=== PATIENT | female | born 1940 | race Caucasian/White ===

== ENCOUNTER 2018-06-20 08:23 | Observation (INO) ==
--- NOTE | 2018-06-20 08:51 | ED ---
HPI General Chief complaint: Respiratory Symptoms Stated complaint: sob x 2 weeks Time Seen by Provider: 06/20/18 08:47 Source: patient Mode of arrival: ambulatory Limitations: no limitations History of Present Illness HPI narrative: 77-year-old female patient with previous history of uterine cancer, colon cancer and breast cancer status post chemo and radiation, postherpetic neuralgia history, presents to the ER today because she states that over the last few weeks she has been having increasing dyspnea on exertion , general weakness, and decided to come in today to be evaluated. She denies any vomiting, diarrhea, black stools, fevers, coughing, chest pains, or other symptoms. Modifying Factors: None Associated Signs & Symptoms:General weakness, dyspnea on exertion for several weeks Risk Factors: None Related Data Home Medications Medication Instructions Recorded Confirmed duloxetine [Cymbalta] 60 mg PO DAILY 06/20/18 06/20/18 gabapentin 300 mg PO BID 06/20/18 06/20/18 Allergies Allergy/AdvReac Type Severity Reaction Status Date / Time Sulfa (Sulfonamide Allergy Intermediate Blister Verified 06/20/18 08:35 Antibiotics) Review of Systems ROS: all other systems reviewed are negative PMFSH History History Provided By: Patient Medical History Medical History Hx of breast cancer (Acute) Hx of cancer of uterus (Acute) Hx of colon cancer, stage I (Acute) Hx of hysterectomy (Acute) Surgical History Surgical History Hx of lumpectomy (Acute) Social History Social History Substance History: No History of Abuse Second Hand Smoke Exposure: No Smoking Status: Former smoker Tobacco Type: Cigarettes How Often Do You Have a Drink Containing Alcohol: Never Recent Travel in [place] within the Last 8 Weeks: No Recent Out of Country Travel within the Last 8 Weeks: No Exam Narrative Exam Narrative: GENERAL: Well-developed elderly female patient currently in moderate distress. Awake and oriented x3. SKIN: Focused skin assessment warm/dry. HEAD: Atraumatic. Normocephalic. EYES: Pupils equal and round. No scleral icterus. No injection or drainage. ENT: No nasal bleeding or discharge. Mucous membranes pink and moist. NECK: Trachea midline. No JVD. CARDIOVASCULAR: Regular rate and rhythm. No murmur appreciated. RESPIRATORY: No accessory muscle use. Clear to auscultation. Breath sounds equal bilaterally. GASTROINTESTINAL: Abdomen soft, non-tender, nondistended. Hepatic and splenic margins not palpable. MUSCULOSKELETAL: No obvious deformities. No clubbing. No cyanosis. No edema. NEUROLOGICAL: Awake and alert. No obvious cranial nerve deficits. Motor grossly within normal limits. Normal speech. PSYCHIATRIC: Appropriate mood and affect; insight and judgment normal. Course Initial Documented Vital Signs Temperature 97.8 F 06/20/18 08:33 Pulse Rate 88 06/20/18 08:33 Respiratory Rate 16 06/20/18 08:33 Blood Pressure 147/65 H 06/20/18 08:33 Pulse Oximetry 97 06/20/18 08:33 Last Documented Vital Signs Temperature 97.8 F 06/20/18 08:33 Pulse Rate 74 06/20/18 10:07 Respiratory Rate 20 06/20/18 10:07 Blood Pressure 114/53 L 06/20/18 09:57 Pulse Oximetry 96 06/20/18 09:57 Medical Decision Making MDM Narrative Medical decision making narrative: Lab work shows elevated BUN and creatinine. Chest x-ray and CAT scan of the chest did not show any signs of acute pulmonary processes. EKG did not show significant tachycardia or significant dysrhythmias. Her blood pressure is on the low side. She was tried on a dose of nebulizer and Solu-Medrol but that did not improve her symptoms much. At this point, my plan would be to admit her for further evaluation. Patient states that she is having trouble just getting from bed to the bathroom which is across the hallway.Case is discussed with Dr. Liz for admission. Medical Screen Exam Complete: Yes Emergency Medical Condition: Yes Differential Diagnosis Differential Diagnosis: Dehydration versus electrolyte abnormalities versus CHF versus pneumonia Lab Data Result diagrams: 06/20/18 08:50 06/20/18 08:50 Lab Results 06/20/18 06/20/18 06/20/18 Range/Units 08:50 08:50 08:50 CBC w Diff Auto diff final WBC 4.2 (4.0-11.0) th/mm3 RBC 4.40 (4.00-5.30) mil/mm3 Hgb 13.8 (11.6-15.3) gm/dL Hct 42.0 (35.0-46.0) % MCV 95.5 (80.0-100.0) fL MCH 31.4 (27.0-34.0) pg MCHC 32.9 (32.0-36.0) % RDW 13.2 (11.6-17.2) % Plt Count 142 L (150-450) th/mm3 MPV 8.7 (7.0-11.0) fL Neut % (Auto) 63.1 (16.0-70.0) % Lymph % (Auto) 25.3 (9.0-44.0) % [place] % (Auto) 6.8 (0.0-8.0) % Eos % (Auto) 3.1 (0.0-4.0) % Baso % (Auto) 1.7 (0.0-2.0) % Neut # (Auto) 2.6 (1.8-7.7) th/mm3 Lymph # (Auto) 1.1 (1.0-4.8) th/mm3 [place] # (Auto) 0.3 (0.0-0.9) th/mm3 Eos # (Auto) 0.1 (0.0-0.4) th/mm3 Baso # (Auto) 0.1 (0.0-0.2) th/mm3 WBC Differential . Differential Comment . PT 10.3 (9.8-11.6) sec INR 1.0 Ratio APTT 25.6 (23.4-31.7) sec Sodium 139 (136-145) meq/L Potassium 4.1 (3.5-5.1) meq/L Chloride 103 (98-107) meq/L Carbon Dioxide 25.9 (21.0-32.0) meq/L Anion Gap 10 (5-15) meq/L BUN 36 H (7-18) mg/dL Creatinine 1.30 H (0.50-1.00) mg/dL Estimated GFR 40 L (>89) mL/min Random Glucose 158 H (74-106) mg/dL Calcium 8.7 (8.5-10.1) mg/dL Total Bilirubin 1.3 H (0.2-1.0) mg/dL AST 12 L (15-37) U/L ALT 14 (10-53) U/L Alkaline Phosphatase 71 (45-117) U/L Troponin I Less than 0.02 L (0.02-0.05) ng/mL Total Protein 7.3 (6.4-8.2) g/dL Albumin 3.4 (3.4-5.0) g/dL Imaging Data Attestation: I personally reviewed and interpreted this imaging study as follows : Radiologist's impression: Chest X-Ray 06/20/18 08:47 CONCLUSION: The lungs are hyperinflated consistent with COPD. No acute infiltrate or effusion. Chest CTA 06/20/18 10:52 CONCLUSION: 1. No pulmonary emboli. 2. Scattered areas of linear scarring versus atelectasis. 3. Small hiatal hernia. ECG Data Attestation: I personally reviewed and interpreted this ECG as follows: Interpretation: EKG shows a narrow complex rhythm at a rate of 78 bpm. No signs of acute ST elevations or depressions. Discharge Plan Discharge Disposition Patient Disposition: 30 Still Patient Discharge Condition Condition: Stable Discharge Details Anticipated Discharge Date: 06/20/18 Diagnosis: Acute dehydration, Dyspnea Physicians Team ED Provider: Nadia Yañez Primary Care Provider: Miriam Bruce Rxs /Orders / Referrals /Forms Prescriptions: No Action duloxetine [Cymbalta] 60 mg Capsule,Delayed Release(Dr/Ec) 60 mg PO DAILY RF: 0 gabapentin 300 mg/6 mL (6 mL) Solution 300 mg PO BID RF: 0 Discharge Interventions Interventions: Vital Signs Last Done: 06/20/18 09:57 Status ED Status: With Doctor
[2018-06-20 09:09] LABS: Baso # (Auto) 0.1 th/mm3 (0.0-0.2); Baso % (Auto) 1.7 % (0.0-2.0); Eos # (Auto) 0.1 th/mm3 (0.0-0.4); Eos % (Auto) 3.1 % (0.0-4.0); Hemoglobin 13.8 gm/dL (11.6-15.3); Lymph # (Auto) 1.1 th/mm3 (1.0-4.8); Lymph % (Auto) 25.3 % (9.0-44.0); Mean Corpuscular HGB Conc 32.9 % (32.0-36.0); Mean Corpuscular Hemoglobin 31.4 pg (27.0-34.0); Mean Corpuscular Volume 95.5 fL (80.0-100.0); Mean Platelet Volume 8.7 fL (7.0-11.0); Mono # (Auto) 0.3 th/mm3 (0.0-0.9); Mono % (Auto) 6.8 % (0.0-8.0); Neut # (Auto) 2.6 th/mm3 (1.8-7.7); Neut % (Auto) 63.1 % (16.0-70.0); Platelet Count 142 th/mm3 (150-450); Red Cell Distribution Width 13.2 % (11.6-17.2); White Blood Count 4.2 th/mm3 (4.0-11.0)
[2018-06-20 09:18] LABS: Chloride 103 meq/L (98-107); Potassium 4.1 meq/L (3.5-5.1); Sodium 139 meq/L (136-145)
--- NOTE | 2018-06-20 09:19 | XR ---
EXAM DATE: 06/20/2018 9:10 AM EST AGE/SEX: 77 years / Female INDICATIONS: Short of breath. CLINICAL DATA: This is the patient's initial encounter. Patient reports that signs and symptoms have been present for 3 days and indicates a pain score of 0/10. MEDICAL/SURGICAL HISTORY: Carcinoma, breast. Carcinoma, colon. Carcinoma, uterine. chemother apy and radiation Hysterectomy. Mastectomy, bilateral. COMPARISON: [facility], CHEST SINGLE AP, 09/23/2010. . FINDINGS: A single AP view of the chest demonstrates the lungs to be symmetrically aerated without evidence of mass, infiltrate or effusion. The lungs are hyperinflated bilaterally. The cardiomediastinal contour s are unremarkable. Osseous structures are intact. Degenerative changes involving the AC joints bila terally as well as the thoracic spine. Surgical clips within the right axilla. CONCLUSION: The lungs are hyperinflated consistent with COPD. No acute infiltrate or effusion. Electronically signed by: Jose Ricardo MD 06/20/2018 9:18 AM EST
[2018-06-20 09:21] LABS: Albumin 3.4 g/dL (3.4-5.0); Glucose,Random 158 mg/dL (74-106)
[2018-06-20 09:22] LABS: Activated Partial Thrombo Time 25.6 sec (23.4-31.7); Prothrombin Time 10.3 sec (9.8-11.6)
[2018-06-20 09:24] LABS: Alanine Aminotransferase 14 U/L (10-53); Aspartate Aminotransferase 12 U/L (15-37); Glomerular Filtration Rate 40 mL/min (>89)
[2018-06-20 09:26] LABS: Total Protein 7.3 g/dL (6.4-8.2)
[2018-06-20 09:27] LABS: Alkaline Phosphatase 71 U/L (45-117)
[2018-06-20] MEDS ORDERED: MethylPREDNISolone Sod Succinate Inj 125 MG/2 ML Vial IV.PUSH ONE (09:47)
[2018-06-20 09:51] LABS: Calcium 8.7 mg/dL (8.5-10.1)
[2018-06-20 09:52] LABS: Anion Gap 10 meq/L (5-15); Blood Urea Nitrogen 36 mg/dL (7-18); Carbon Dioxide 25.9 meq/L (21.0-32.0)
--- NOTE | 2018-06-20 11:52 | CT ---
EXAM DATE: 06/20/2018 11:47 AM EST AGE/SEX: 77 years / Female INDICATIONS: Short of breath. CLINICAL DATA: This is the patient's initial encounter. Patient reports that signs and symptoms have been present for 2 weeks and indicates a pain score of 0/10. MEDICAL/SURGICAL HISTORY: Carcinoma, breast. Carcinoma, uterine. Carcinoma, colon. Hysterectomy. RADIATION DOSE: 18.51 CTDI (mGy) COMPARISON: No prior exams available for comparison. TECHNIQUE: Volumetric scanning was performed using a multi-row detector CT scanner during bolus infu kvng of 50 ml Visipaque 320 (iodixanol) nonionic water-soluble contrast as a single exam dose. The d luis was post processed with a variety of visualization algorithms including full volume maximum inten sity projection and sliding thin slab reformation. Using automated exposure control and adjustment of the mA and/or kV according to patient size, radiation dose was kept as low as reasonably achievable to obtain optimal diagnostic quality images. DICOM format image data is available electronically for review and comparison. FINDINGS: Pulmonary Arteries: No filling defects are seen in the pulmonary arteries out to the subsegmental ve ssels. The left and right pulmonary arteries are normal in diameter. Lung: No infiltrates seen. Linear atelectasis versus scarring within the lingula, right middle lobe, and right lower lobe. Effusion: None. Mediastinum: No evidence of mediastinal or hilar adenopathy/mass. The heart is normal in size. Coron jodie artery atherosclerotic calcifications are noted. The aorta and pulmonary arteries are normal in c aliber. Small hiatal hernia. . Other: The axilla is unremarkable. CONCLUSION: 1. No pulmonary emboli. 2. Scattered areas of linear scarring versus atelectasis. 3. Small hiatal hernia. Electronically signed by: Jose Ricardo MD 06/20/2018 11:51 AM EST
[2018-06-20] MEDS ORDERED: Acetaminophen 325 MG Tablet PO PRN (12:16)
[2018-06-20] MEDS ORDERED: Bisacodyl 10 MG Supp RECTAL PRN (12:16)
--- NOTE | 2018-06-20 16:21 | P.HP ---
History of Present Illness Primary Care Physician: Miriam Bruce MD Chief Complaint: Generalized weakness History of Present Illness: This is a pleasant 77-year-old female patient with a known medical history of uterine, colon and breast cancer status post chemotherapy and radiation, history of postherpetic neuralgia presented to the ED with complaints of increasing dyspnea especially on exertion and along with activity with generalized weakness especially in her lower extremities. She states that over the past couple weeks she has been unable to walk to the bathroom without significant shortness of breath and intermittent diaphoresis. She states that her knees also feel weak. Denies any recent falls, denies any associated lightheadedness or dizziness. Denies any recent illness including fever, chills , cough, headache, chest pain, abdominal pain, nausea, vomiting, diarrhea or dysuria. Patient states she lives with her debilitated sister, but has been helping her for the past several months. Patient does have a history of multiple cancers including uterine, colon and breast, she follows with Dr. Lema, oncology she is status post chemotherapy and radiation. She does take daily Arimidex and is said to be in remission. Does admit to 11-pound weight loss in the past week and admits to increased activity secondary to the demands of taking care of her sister. Patient also follows with a urologist, does have a remote history of bladder incontinence and receives Botox injections for this. Patient denies any significant back pain, bowel incontinence, numbness or tingling to lower extremities that would be associated with her lower extremity weakness. - Diagnosis (1) Acute dehydration (2) Dyspnea (3) Generalized weakness Review of Systems All other systems reviewed negative except as stated in HPI PMFSH - History History Provided By: Patient - Medical History Medical History: Medical History (Last Updated 06/20/18 @ 16:12 by Dayana Fisher) Hx of breast cancer Hx of cancer of uterus Hx of colon cancer, stage I Hx of hysterectomy Obesity (BMI 35.0-39.9 without comorbidity) - Surgical History Surgical History: Surgical History (Last Updated 06/20/18 @ 16:13 by Dayana Fisher) History of Hx of lumpectomy - Family History Family History: Family History (Last Updated 06/20/18 @ 16:13 by Dayana Fisher) Other Family history in first degree relatives is unremarkable - Social History I have reviewed the patient's Social History: Yes - Tobacco History Second Hand Smoke Exposure: No Tobacco Use In Past 30 Days: No Smoking Status: Former smoker Tobacco Type: Cigarettes - Alcohol History How Often Do You Have a Drink Containing Alcohol: Never - Substance Use History Substance History: No History of Abuse - Travel History Recent Travel in the [place] Within the Last 8 Weeks: No Recent Travel Out of the Country Within the Last 8 Weeks: No - Immunization History Tetanus Immunization: Unsure Medications and Allergies Active Medications: Active Medications Acetaminophen (Tylenol) 650 mg PO Q4H PRN PRN Reason: Temp > 100.4 Al Hydroxide/Mg Hydroxide (Milk Of Magnesia Liq) 30 ml PO Q12H PRN PRN Reason: Mild Constipation Bisacodyl (Dulcolax Supp) 10 mg RECTAL DAILY PRN PRN Reason: SEVERE CONSITIPATION Duloxetine HCl (Cymbalta) 60 mg PO DAILY AGATHA Lactulose (Lactulose Liq) 30 ml PO DAILY PRN PRN Reason: SEVERE CONSITIPATION Non-Formulary Medication (Arimidex) 1 mg PO DAILY AGATHA Non-Formulary Medication (Cholecalciferol (Vitamin D3) [Vitamin D3]) 1,000 mg PO DAILY AGATHA Non-Formulary Medication (Gabapentin [Gabapentin]) 300 mg PO BID AGATHA Ondansetron HCl (Zofran Inj) 4 mg IV.PUSH Q6H PRN PRN Reason: NAUSEA OR VOMITING Sennosides (Senokot) 17.2 mg PO Q12H PRN PRN Reason: Moderate Constipation Allergies Allergy/AdvReac Type Severity Reaction Status Date / Time Sulfa (Sulfonamide Allergy Intermediate Blister Verified 06/20/18 08:35 Antibiotics) Home Medications Medication Instructions Recorded Confirmed Type Arimidex 1 mg PO DAILY 06/20/18 06/20/18 History cholecalciferol (vitamin D3) 1,000 mg PO DAILY 06/20/18 06/20/18 History [Vitamin D3] duloxetine [Cymbalta] 60 mg PO DAILY 06/20/18 06/20/18 History gabapentin 300 mg PO BID 06/20/18 06/20/18 History Exam Vital signs: Vital Signs 06/20/18 08:33 06/20/18 09:57 06/20/18 10:07 Temperature 97.8 F Pulse Rate 88 67 74 Respiratory Rate 16 18 20 Blood Pressure 147/65 H 114/53 L Pulse Oximetry 97 96 06/20/18 13:20 Temperature Pulse Rate 87 Respiratory Rate 16 Blood Pressure 122/76 Pulse Oximetry Intake & Output 06/19/18 06/20/18 06/20/18 18:59 06:59 18:59 Weight 107.4 kg Narrative: GENERAL: Well-developed, well-nourished obese female patient in [facility]. SKIN: Warm and dry. No rash. HEAD: Normocephalic. Atraumatic. EYES: Pupils equal and round. No scleral icterus. No injection or drainage. ENT: No nasal bleeding or discharge. Mucous membranes pink and moist. NECK: Supple. Trachea midline. CARDIOVASCULAR: Regular rate and rhythm. S1, S2 noted. No murmur appreciated. RESPIRATORY: No accessory muscle use. Clear to auscultation. Breath sounds equal bilaterally. GASTROINTESTINAL: Abdomen soft, non-tender, nondistended. Normoactive bowel sounds x4. MUSCULOSKELETAL: No obvious deformities. Extremities without clubbing, cyanosis , or edema. NEUROLOGICAL: Awake and alert. No obvious cranial nerve deficits. Motor grossly within normal limits. 5/5 muscle strength in bilateral upper and lower extremities. Normal speech. PSYCHIATRIC: Appropriate mood and affect; insight and judgment normal. Results - Labs CBC & Chem 7: 06/20/18 08:50 06/20/18 08:50 Labs: Laboratory Results - last 24 hr 06/20/18 06/20/18 06/20/18 08:50 08:50 08:50 CBC w Diff Auto diff final WBC 4.2 RBC 4.40 Hgb 13.8 Hct 42.0 MCV 95.5 MCH 31.4 MCHC 32.9 RDW 13.2 Plt Count 142 L MPV 8.7 Neut % (Auto) 63.1 Lymph % (Auto) 25.3 [place] % (Auto) 6.8 Eos % (Auto) 3.1 Baso % (Auto) 1.7 Neut # (Auto) 2.6 Lymph # (Auto) 1.1 [place] # (Auto) 0.3 Eos # (Auto) 0.1 Baso # (Auto) 0.1 WBC Differential . Differential Comment . PT 10.3 INR 1.0 APTT 25.6 Sodium 139 Potassium 4.1 Chloride 103 Carbon Dioxide 25.9 Anion Gap 10 BUN 36 H Creatinine 1.30 H Estimated GFR 40 L Random Glucose 158 H Calcium 8.7 Total Bilirubin 1.3 H AST 12 L ALT 14 Alkaline Phosphatase 71 Troponin I Less than 0.02 L Total Protein 7.3 Albumin 3.4 - Imaging Impressions Chest X-Ray 06/20/18 08:47 CONCLUSION: The lungs are hyperinflated consistent with COPD. No acute infiltrate or effusion. Chest CTA 06/20/18 10:52 CONCLUSION: 1. No pulmonary emboli. 2. Scattered areas of linear scarring versus atelectasis. 3. Small hiatal hernia. Caprini VTE Risk Assessment Caprini VTE Risk Assessment: Moderate/High Risk (score >= 2) Caprini Risk Assessment Model: Point Value = 1 Point Value = 2 Point Value = 3 Point Value = 5 Age 41-60 Minor surgery BMI > 25 kg/m2 Swollen legs Varicose veins or History of unexplained or recurrent spontaneous Oral contraceptives or hormone replacement Sepsis (< 1 month) Serious lung disease, including pneumonia (< 1 month) Abnormal pulmonary function Acute myocardial infarction Congestive heart failure (< 1 month) History of inflammatory bowel disease Medical patient at bed rest Age 61-74 Arthroscopic surgery Major open surgery (> 45 min) Laparoscopic surgery (> 45 min) Malignancy Confined to bed (> 72 hours) Immobilizing plaster cast Central venous access Age >= 75 History of VTE Family history of VTE Factor V Leiden Prothrombin [id number] Lupus anticoagulant Anticardiolipin antibodies Elevated serum homocysteine Heparin-induced thrombocytopenia Other congenital or acquired thrombophilia Stroke (< 1 month) Elective arthroplasty Hip, pelvis, or leg fracture Acute spinal cord injury (< 1 month) Prophylaxis Regimen: Total Risk Factor Score Risk Level Prophylaxis Regimen 0-1 Low Early ambulation 2 Moderate Order ONE of the following: *Sequential Compression Device (SCD) *Heparin 5000 units SQ BID 3-4 Higher Order ONE of the following medications: *Heparin 5000 units SQ TID *Enoxaparin/Lovenox 40 mg SQ daily (WT < 150 kg, CrCl > 30 mL/min) *Enoxaparin/Lovenox 30 mg SQ daily (WT < 150 kg, CrCl > 10-29 mL/min) *Enoxaparin/Lovenox 30 mg SQ BID (WT < 150 kg, CrCl > 30 mL/min) AND/OR *Sequential Compression Device (SCD) 5 or more Highest Order ONE of the following medications: *Heparin 5000 units SQ TID (Preferred with Epidurals) *Enoxaparin/Lovenox 40 mg SQ daily (WT < 150 kg, CrCl > 30 mL/min) *Enoxaparin/Lovenox 30 mg SQ daily (WT < 150 kg, CrCl > 10-29 mL/min) *Enoxaparin/Lovenox 30 mg SQ BID (WT < 150 kg, CrCl > 30 mL/min) AND *Sequential Compression Device (SCD) Assessment and Plan - Assessment (1) Acute dehydration Code(s): E86.0 - Dehydration Status: Acute (2) Dyspnea Code(s): R06.00 - Dyspnea, unspecified Status: Acute (3) Generalized weakness Code(s): R53.1 - Weakness Status: Acute - Plan This is a 77-year-old female patient with a known medical history of uterine, colon, and breast cancer status post chemotherapy and radiation and postherpetic neuralgia secondary to shingles who presented to the ED with complaints of worsening dyspnea with exertion and overall generalized weakness especially in her lower extremities. Dyspnea on exertion Generalized weakness -Patient presented with a 2-week complaint of worsening shortness of breath with exertion and generalized weakness. -PT evaluation has been ordered and pending. Await recommendations, may need placement to a rehabilitation facilitiy. -Added BNP to labs. Follow. -Chest CTA done in ED and reviewed showing no presence of PE, some atelectasis noted. No other acute findings. -Patient is stable on RA. Supplement O2 as needed. -Was given methylprednisone and Duonebs in ED. Patient is completely asymptomatic. No wheezing on exam. Will hold off on continuing steroids for now. -CBC on presentation is unremarkable. Dehydration Acute kidney injury suspect secondary to above. -Creatinine 1.3/GFR 40. No recent records to compare baseline. Will check CPK levels. -If BNP is negative, will start on gentle hydration. -Monitor BMP in am. -Avoid nephrotoxins. History of uterine, colon and breast cancer -Stable at this time. Follows with Dr. Lema. Status post chemo and radiation. Continue home Arimidex. -Supportive care. History of shingles and postherpetic neuralgia -Continue home gabapentin. DVT prophylaxis: SCDs.
--- NOTE | 2018-06-20 17:07 | ECG ---
Date Performed: 06/20/2018 Time Performed: 08:57:49 PTAGE: 77 years EKG: Sinus rhythm PREVIOUS TRACING : 08/30/2008 09.18 Since the previous tracing, no significant change not ed DOCTOR: Lamonte Reynolds Interpretating Date/Time 06/20/2018 17:06:17
[2018-06-20 17:23] LABS: Creatine Kinase 40 U/L (26-192)
[2018-06-20 18:04] LABS: Bilirubin,Urine Negative (Negative); Clarity,Urine Slightly Cloudy (Clear); Color,Urine Yellow (Yellw/Straw); Glucose,Urine (UA) 250 mg/dL (Negative); Leukocyte Esterase,Urine Trace (Negative); Nitrite,Urine Positive (Negative); PH,Urine 5.5 (5.0-8.5); Specific Gravity,Urine 1.015 (1.002-1.035); Urobilinogen,Urine 0.2 mg/dL (Less than 2)
[2018-06-20 18:09] LABS: Squamous Epithelial Cell,Urine 0-5 /hpf (0-5)
[2018-06-20 18:10] LABS: Bacteria,Urine Many /hpf
[2018-06-20] MEDS ORDERED: Sod Chloride 0.9% Inj 1,000 ML IV.CONT SCH (19:15)
[2018-06-20] MEDS: Duloxetine 60 MG DR Capsule PO SCH (20:20)
[2018-06-20] MEDS: Gabapentin 300 MG Capsule PO SCH (20:20)
[2018-06-21 07:58] LABS: Baso % (Auto) 0.1 % (0.0-2.0); Eos % (Auto) 0.1 % (0.0-4.0); Hematocrit 40.5 % (35.0-46.0); Hemoglobin 13.3 gm/dL (11.6-15.3); Lymph # (Auto) 0.8 th/mm3 (1.0-4.8); Mean Corpuscular HGB Conc 32.9 % (32.0-36.0); Mean Corpuscular Hemoglobin 31.6 pg (27.0-34.0); Mono # (Auto) 0.4 th/mm3 (0.0-0.9); Neut # (Auto) 5.1 th/mm3 (1.8-7.7); Neut % (Auto) 80.8 % (16.0-70.0); Platelet Count 141 th/mm3 (150-450); Red Blood Count 4.22 mil/mm3 (4.00-5.30); White Blood Count 6.3 th/mm3 (4.0-11.0)
[2018-06-21 08:04] LABS: Potassium 4.3 meq/L (3.5-5.1)
[2018-06-21 08:07] LABS: Calcium 8.9 mg/dL (8.5-10.1)
[2018-06-21 08:08] LABS: Carbon Dioxide 28.3 meq/L (21.0-32.0)
[2018-06-21] MEDS ORDERED: Duloxetine 60 MG DR Capsule PO SCH (09:00)
[2018-06-21] MEDS ORDERED: Anastrozole 1 MG Tablet PO SCH (09:00)
[2018-06-21] MEDS: Gabapentin 300 MG Capsule PO SCH (09:11)
[2018-06-21] MEDS: Duloxetine 60 MG DR Capsule PO SCH (09:11)
--- NOTE | 2018-06-21 10:12 | P.DCO ---
- Diagnosis (1) Acute dehydration Status: Acute (2) Dyspnea Status: Acute (3) Generalized weakness Status: Acute - Physical Therapy Order: Evaluate and treat, Improve ambulation, Strength and gait training - Home Health Nursing Order: Medical education, Signs/symptoms of disease process, Nursing assessment with vital signs - Case Management Consult Case Management Consult-Home Health: Yes - Certification I have seen patient Daniela Saenz on 06/21/18. My clinical findings support the need for the requested home health care services because: Deconditioned with increased weakness, Limited ability to care for self I certify that my clinical findings support that this patient is homebound because: Hx COPD - exertion dyspnea/weakness, Unsteady gait/balance
[2018-06-21 12:53] VITALS: BP 129/60; PULSE 84; RESP 18; TEMP 96.8; O2SAT 95
--- NOTE | 2018-06-21 13:55 | P.PNIM ---
Subjective Interval history: 77-year-old female who was seen and examined today for follow-up on weakness, shortness of breath, fatigue. Patient states that she is feeling better. Discussed all the patient's findings with her. Notified her of her urinary tract infection which could have caused her presenting symptoms. Patient does feel much better and is in agreement to go home. Patient vital signs are stable. Remains afebrile. Physical Exam Vital signs: Vital Signs 06/20/18 16:00 06/20/18 20:00 06/20/18 20:10 Temperature 96.8 F L 98.2 F Pulse Rate 88 98 H Respiratory Rate 20 20 Blood Pressure 120/57 L 126/61 Pulse Oximetry 90 L 98 95 06/21/18 00:00 06/21/18 04:00 06/21/18 08:00 Temperature 97.1 F L 96.1 F L 97.2 F L Pulse Rate 75 76 76 Respiratory Rate 20 20 16 Blood Pressure 133/67 152/71 H 132/75 Pulse Oximetry 94 L 95 99 06/21/18 08:10 06/21/18 08:15 06/21/18 12:00 Temperature 96.8 F L Pulse Rate 102 H 84 Respiratory Rate 18 Blood Pressure 129/60 Pulse Oximetry 98 95 Intake & Output 06/20/18 06/21/18 06/21/18 18:59 06:59 18:59 Intake Total 442 / 442 525 / 525 650 / 650 Output Total 200 / 200 1200 / 1200 Balance 242 / 242 -675 / -675 650 / 650 Weight 107.4 kg 111.8 kg Intake: IV 100 / 100 650 / 650 NS Inj 1,000 ML @ 42 mls/hr IV. 650 / 650 CONT .[id number] AGATHA Rx#: [id number] Rocephin Inj 1,000 MG In NS Inj 100 / 100 100 ML @ 200 mls/hr IV.SIG Q24H AGATHA Rx#:[id number] Oral 442 / 442 425 / 425 Output: Urine 200 / 200 1200 / 1200 Other: Date of Last Bowel Movement 06/20/18 # Bowel Movements 0 Weight On Admission 107.4 kg Narrative: GENERAL: Well-developed, well-nourished, in no acute distress. alert and orientated HEENT: Head is normocephalic without any lesions or masses noted. Facial features are symmetric. Eyes: Extraocular muscles are intact. Conjunctivae were clear. NECK: Supple without any masses. Trachea midline no deviation. No JVD, CARDIAC: Regular rhythm, regular rate. S1/S2 are heard. No murmurs gallops or rubs. LUNGS: Clear to auscultation bilaterally. No wheeze, rhonchi or rales. No use of accessory muscles on inspiration or expiration. ABDOMEN: Soft, nontender. Nondistended. Bowel sounds heard in all 4 quadrants. No organomegaly or masses. Negative rebound, negative guarding EXTREMITIES: No edema, pulses are equal bilaterally. No cyanosis or clubbing NEUROLOGY: Mood and affect appear appropriate. Cranial nerves II through XII grossly intact. Moving all extremities, speech is clear Results - Labs CBC & Chem 7: 06/21/18 07:15 06/21/18 07:15 Laboratory Results - last 24 hr 06/20/18 06/20/18 06/20/18 08:50 08:50 17:50 CBC w Diff WBC RBC Hgb Hct MCV MCH MCHC RDW Plt Count MPV Neut % (Auto) Lymph % (Auto) [place] % (Auto) Eos % (Auto) Baso % (Auto) Neut # (Auto) Lymph # (Auto) [place] # (Auto) Eos # (Auto) Baso # (Auto) WBC Differential Differential Comment Sodium 139 Potassium 4.1 Chloride 103 Carbon Dioxide 25.9 Anion Gap 10 BUN 36 H Creatinine 1.30 H Estimated GFR 40 L Random Glucose 158 H Calcium 8.7 Total Bilirubin 1.3 H AST 12 L ALT 14 Alkaline Phosphatase 71 Total Creatine Kinase 40 Troponin I Less than 0.02 L B-Natriuretic Peptide 52 Total Protein 7.3 Albumin 3.4 Urine Color Yellow Urine Clarity Slightly cloudy Urine pH 5.5 Ur Specific [place] 1.015 Urine Protein Trace Urine Glucose (UA) 250 H Urine Ketones Negative Urine Occult Blood Small H Urine Nitrate Positive H Urine Bilirubin Negative Urine Urobilinogen 0.2 Ur Leukocyte Esterase Trace H Urine RBC 4-15 H Urine WBC 9-20 H Urine WBC Clumps Few H Ur Squamous Epith Cells 0-5 Urine Bacteria Many H Micro UA Comment Culture indicated Ur Microscopic Review Microscopic reviewed Urine Culture Comments Culture indicated 06/21/18 06/21/18 07:15 07:15 CBC w Diff Auto diff final WBC 6.3 RBC 4.22 Hgb 13.3 Hct 40.5 MCV 96.0 MCH 31.6 MCHC 32.9 RDW 13.0 Plt Count 141 L MPV 9.0 Neut % (Auto) 80.8 H Lymph % (Auto) 13.0 [place] % (Auto) 6.0 Eos % (Auto) 0.1 Baso % (Auto) 0.1 Neut # (Auto) 5.1 Lymph # (Auto) 0.8 L [place] # (Auto) 0.4 Eos # (Auto) 0.0 Baso # (Auto) 0.0 WBC Differential . Differential Comment . Sodium 139 Potassium 4.3 Chloride 103 Carbon Dioxide 28.3 Anion Gap 8 BUN 33 H Creatinine 1.10 H Estimated GFR 48 L Random Glucose 152 H Calcium 8.9 Total Bilirubin AST ALT Alkaline Phosphatase Total Creatine Kinase Troponin I B-Natriuretic Peptide Total Protein Albumin Urine Color Urine Clarity Urine pH Ur Specific [place] Urine Protein Urine Glucose (UA) Urine Ketones Urine Occult Blood Urine Nitrate Urine Bilirubin Urine Urobilinogen Ur Leukocyte Esterase Urine RBC Urine WBC Urine WBC Clumps Ur Squamous Epith Cells Urine Bacteria Micro UA Comment Ur Microscopic Review Urine Culture Comments Microbiology 06/20/18 17:50 Clean Catch Urine Urine Culture - Preliminary gram negative rods Assessment and Plan - Assessment (1) Acute dehydration Code(s): E86.0 - Dehydration Status: Acute (2) Dyspnea Code(s): R06.00 - Dyspnea, unspecified Status: Acute (3) Generalized weakness Code(s): R53.1 - Weakness Status: Acute - Plan Urinary tract infection, with presenting symptoms of generalized weakness, dyspnea on exertion -Patient presented with a 2-week complaint of worsening shortness of breath with exertion and generalized weakness. -Patient had a workup done with CTA of the chest, chest x-ray, cardiac enzymes which were unremarkable, BMP which was normal -Physical therapy evaluated the patient and indicated patient can go home with home health care and front wheel walker -Patient remains stable on room air -Patient continued on Rocephin -Patient will discharge home on Ceftin 500 mg twice daily Acute renal failure superimposed on chronic kidney disease stage III, secondary to dehydration -Patient continued on gentle hydration -Renal functions have improved History of uterine, colon and breast cancer -Stable at this time. -Follows with Dr. Lema. Status post chemo and radiation. Continue home Arimidex. -Supportive care. History of shingles and postherpetic neuralgia -Continue home gabapentin. DVT prophylaxis: SCDs. Discharge Planning: Discharge home in stable condition Activity: Ad cherry. Diet: Healthy heart diet Medication per medication reconciliation Follow-up with primary medical doctor in 1 week
== END 2018-06-21 15:09 | disposition home health service (06) ==
LOC: PHED 08:23 → PHEDA 08:23 → PH3 14:23
PROVIDERS: ADMIT Hospitalist; ATTEND Hospitalist
DX: E86.0 Dehydration; Z85.3 Personal history of malignant neoplasm of breast; Z87.891 Personal history of nicotine dependence; J44.9 Chronic obstructive pulmonary disease, unspecified; N39.0 Urinary tract infection, site not specified; R06.00 Dyspnea, unspecified; Z85.42 Personal history of malignant neoplasm of other parts of uterus; Z85.038 Personal history of other malignant neoplasm of large intestine; N18.3 Chronic kidney disease, stage 3 (moderate); Z92.3 Personal history of irradiation; N17.9 Acute kidney failure, unspecified; Z92.21 Personal history of antineoplastic chemotherapy; K44.9 Diaphragmatic hernia without obstruction or gangrene